=== PATIENT | female | born 1985 | race Two or more races ===

== ENCOUNTER 2023-03-29 22:38 | Inpatient (IN) | payer OTHER ==
[~2023-03-29] VITALS: Ht 162.6 cm; Wt 108.6 kg
[2023-03-29 23:12] LABS: COVID AG,FIA SOURCE NASAL SWAB
[2023-03-29 23:16] LABS: BASOPHILS % (AUTO) 0.6 % (0.0-2.0); EOSINOPHILS % (AUTO) 1.2 % (1.0-6.0); HEMATOCRIT 38.7 % (36-46); HEMOGLOBIN 12.8 g/dL (12.0-16.0); LYMPHOCYTES # (AUTO) 2.6 K/uL (1.0-4.8); LYMPHOCYTES % (AUTO) 20.5 % (22.0-44.0); MEAN CORPUSCULAR HEMOGLOBIN 28.8 pg (26.0-34.0); MEAN CORPUSCULAR HGB CONC 33.1 G/dL (31.0-37.0); MEAN CORPUSCULAR VOLUME 87 fL (80-100); MONOCYTES # (AUTO) 0.7 K/uL (0.1-1.0); MONOCYTES % (AUTO) 5.6 % (2.0-9.0); NEUTROPHILS # (AUTO) 9.2 K/uL (1.8-7.7); NEUTROPHILS % (AUTO) 72.1 % (40.0-70.0); PLATELET COUNT (AUTO) 244 K/uL (150-450); RED BLOOD CELL COUNT(AUTO) 4.44 MIL/uL (4.00-5.20); RED CELL DISTRIBUTION WIDTH 13.1 % (11.5-14.5); WHITE BLOOD COUNT (AUTO) 12.8 K/uL (4.5-11.0)
[2023-03-29 23:28] LABS: ANION GAP 8 mmol/L (8-16); CALCIUM, TOTAL 8.5 mg/dL (8.8-10.5); CARBON DIOXIDE 25 mmol/L (22-29); CHLORIDE 104 mmol/L (98-107); CREATININE 0.85 mg/dL (0.60-1.30); GLOMERULAR FILTR. RATE CALC > 60 mL/min (>60); GLUCOSE,RANDOM 172 mg/dL (70-110); POTASSIUM 3.6 mmol/L (3.5-5.1); SODIUM SERUM 137 mmol/L (136-145); UREA NITROGEN, BLOOD 15 mg/dL (7-18)
[2023-03-29 23:33] LABS: SARS-COV2 (COVID) ANTIGEN,FIA Negative (Negative)
[2023-03-29 23:34] LABS: ALANINE AMINOTRANSFERASE 15 U/L (12-78); ALBUMIN 3.4 g/dL (3.4-5.0); ALKALINE PHOSPHATASE 91 U/L (46-116); ASPARTATE AMINOTRANSFERASE 20 U/L (15-37); BILIRUBIN,TOTAL 0.2 mg/dL (0.1-1.0); TOTAL PROTEIN, SERUM 6.8 g/dL (6.4-8.2)
[2023-03-29 23:35] LABS: ACETAMINOPHEN < 2 mcg/mL (10-30)
[2023-03-29] MEDS ORDERED: 0.9% SODIUM CHLORIDE 10 ML SYRINGE IVP PRN (23:45)
[2023-03-29] MEDS ORDERED: DEXTROSE 50%-WATER 25 GM/50 ML SYRINGE IVP PRN (23:45)
[2023-03-29] MEDS ORDERED: CefTRIAXone 1 GM/DEXTROSE 50 ML IV ONE (23:45)
[2023-03-29] MEDS ORDERED: INSULIN LISPRO 100 UNITS/ML SQ PRN (23:45)
[2023-03-29] MEDS ORDERED: SODIUM CHLORIDE 0.9% 2,950 ML IV ONE (23:45)
[2023-03-29] MEDS ORDERED: ACETAMINOPHEN 325 MG TABLET PO PRN (23:45)
[2023-03-29 23:46] LABS: APPEARANCE,URINE HAZY (CLEAR); BILIRUBIN,URINE NEGATIVE (NEGATIVE); COLOR,URINE YELLOW (YELLOW); GLUCOSE, URINE (UA) NEGATIVE (NEGATIVE); KETONES,URINE NEGATIVE (NEGATIVE); LEUKOCYTE ESTERASE ,URINE LARGE (NEGATIVE); NITRATE,URINE NEGATIVE (NEGATIVE); OCCULT BLOOD,URINE NEGATIVE (NEGATIVE); PH,URINE 5.5 (5.0-8.0); PH,URINE DRUG SCREEN 5.5 (5.0-8.0); PROTEIN,URINE 100-200,SEE CONFIRM mg/dL (NEGATIVE); SPECIFIC GRAVITIY, URINE 1.037 (1.003-1.030); UROBILINOGEN,URINE <=1.0 mg/dL (<=1.0)
[2023-03-29 23:48] LABS: ALCOHOL, BLOOD (SERUM) < 3 mg/dL (0-10)
[2023-03-29 23:51] LABS: SALICYLATE 2.8 mg/dL (2.8-20.0)
[2023-03-29 23:53] LABS: ALCOHOL, URINE DRUG SCREEN NEGATIVE (NEGATIVE); AMPHET/METH SCREEN,URINE NEGATIVE (NEGATIVE); BARBITURATE SCREEN, URINE NEGATIVE (NEGATIVE); BENZODIAZEPINES SCREEN,URINE NEGATIVE (NEGATIVE); CANNABINOID SCREEN,URINE POSITIVE (NEGATIVE); COCAINE SCREEN,URINE NEGATIVE (NEGATIVE); METHADONE SCREEN, URINE NEGATIVE (NEGATIVE); OPIATE SCREEN,URINE NEGATIVE (NEGATIVE); PHENCYCLIDINE SCREEN,URINE NEGATIVE (NEGATIVE)
[2023-03-30 00:03] LABS: ABG A-A DIFF O2 19.7 mmHg (10-20.0); ABG BASE EXCESS -2.7 mmol/L (-2.0-3.0); ABG CARBOXYHEMOGLOBIN 0.8 % (0.0-1.5); ABG HCO3 22.7 mmol/L (22.0-26.0); ABG METHEMOGLOBIN 0.8 % (0.0-1.5); ABG OXYGEN CONTENT 18.2 mL/dL (15.0-23.0); ABG OXYGEN SATURATION 97.3 % (95.0-98.0); ABG OXYHEMOGLOBIN 95.7 % (94.0-100.0); ABG PCO2 36 mmHg (35-45); ABG PH 7.404 (7.350-7.450); ABG TOTAL HEMOGLOBIN 13.5 G/dL (12.0-18.0); ALLEN TEST, BLOOD GAS Positive; O2 DEVICE,BLOOD GAS ROOM AIR (ROOM AIR); PO2, ARTERIAL BG 86.8 mmHg (92.0-100.0); SITE, BLOOD GAS LFT RADIAL; SOURCE, BLOOD GAS ARTERIAL; TEMPERATURE, FAHRENHEIT, BG 98.6 FAHREN (96.0-98.6)
[2023-03-30 00:06] LABS: BACTERIA,URINE Moderate /HPF (None Seen); RBC,URINE None Seen /HPF (0-2); SQUAMOUS EPITHELIAL CELL,UR Many /LPF (None Seen); SULFOSALICYLIC ACID,URINE 1+ (Negative)
[2023-03-30 00:14] LABS: LACTIC ACID 1.1 mmol/L (0.4-2.0)
[2023-03-30 00:24] LABS: HCG,QUANTITATIVE < 1 mIU/mL (0-6); LACTATE DEHYDROGENASE 194 U/L (81-234)
[2023-03-30] MEDS ORDERED: SODIUM CHLORIDE 0.9% 500 ML IV ONE (02:45)
[2023-03-30 07:06] LABS: EOSINOPHILS % (AUTO) 1.1 % (1.0-6.0); HEMATOCRIT 34.5 % (36-46); HEMOGLOBIN 11.6 g/dL (12.0-16.0); LYMPHOCYTES # (AUTO) 2.7 K/uL (1.0-4.8); LYMPHOCYTES % (AUTO) 32.9 % (22.0-44.0); MEAN CORPUSCULAR HEMOGLOBIN 29.6 pg (26.0-34.0); MEAN CORPUSCULAR HGB CONC 33.8 G/dL (31.0-37.0); MEAN CORPUSCULAR VOLUME 88 fL (80-100); MONOCYTES # (AUTO) 0.6 K/uL (0.1-1.0); MONOCYTES % (AUTO) 7.1 % (2.0-9.0); NEUTROPHILS # (AUTO) 4.7 K/uL (1.8-7.7); NEUTROPHILS % (AUTO) 57.9 % (40.0-70.0); PLATELET COUNT (AUTO) 224 K/uL (150-450); RED BLOOD CELL COUNT(AUTO) 3.94 MIL/uL (4.00-5.20); RED CELL DISTRIBUTION WIDTH 13.2 % (11.5-14.5); WHITE BLOOD COUNT (AUTO) 8.1 K/uL (4.5-11.0)
[2023-03-30 07:19] LABS: ANION GAP 9 mmol/L (8-16); CARBON DIOXIDE 22 mmol/L (22-29); CHLORIDE 107 mmol/L (98-107); CREATININE 0.81 mg/dL (0.60-1.30); GLOMERULAR FILTR. RATE CALC > 60 mL/min (>60); GLUCOSE,RANDOM 96 mg/dL (70-110); POTASSIUM 3.9 mmol/L (3.5-5.1); SODIUM SERUM 138 mmol/L (136-145); UREA NITROGEN, BLOOD 9 mg/dL (7-18)
[2023-03-30] MEDS: HEPARIN SODIUM,PORCINE 5,000 UNITS/ML VIAL SQ SCH ×2 (19:00→23:09)
[2023-03-30 21:34] VITALS: BP 100/51; PULSE 69; RESP 18; TEMP 97.9
[2023-03-30] MEDS ORDERED: SODIUM CHLORIDE 0.9% 1,000 ML ONE (22:45)
[2023-03-30] MEDS: CHLORHEXIDINE GLUCONATE 2% TOWELETTE [2'S/6'S] TP SCH (22:47)
[2023-03-30] MEDS: CefTRIAXone 1 GM/DEXTROSE 50 ML IV SCH (22:47)
[2023-03-31 00:05] VITALS: BP 102/57; PULSE 66; RESP 18; TEMP 98.2
[2023-03-31 04:16] VITALS: BP 96/58; PULSE 62; RESP 18; TEMP 97.8
[2023-03-31] MEDS: HEPARIN SODIUM,PORCINE 5,000 UNITS/ML VIAL SQ SCH ×3 (08:00→23:47)
[2023-03-31 08:28] VITALS: BP 103/59; PULSE 69; RESP 18; TEMP 98
[2023-03-31] MEDS: HYDROCODONE/ACETAMINOPHEN 5-325 MG TABLET PO PRN ×3 (09:35→18:18)
[2023-03-31 11:31] LABS: GLUCOMETER DEV NAME(LOC) 5N.2C; GLUCOSE,POINT OF CARE 99 MG/DL (70-110)
[2023-03-31 19:56] VITALS: BP 93/48; PULSE 71; RESP 18; TEMP 98.7
[2023-03-31] MEDS ORDERED: SODIUM CHLORIDE 0.9% 500 ML IV ONE (20:30)
[2023-03-31] MEDS ORDERED: SODIUM CHLORIDE 0.9% 1,000 ML IV ONE (21:30)
[2023-03-31] MEDS: CefTRIAXone 1 GM/DEXTROSE 50 ML IV SCH (23:41)
[2023-03-31] MEDS: CHLORHEXIDINE GLUCONATE 2% TOWELETTE [2'S/6'S] TP SCH (23:58)
[2023-04-01 00:03] VITALS: BP 105/68; PULSE 67; RESP 18; TEMP 98.3
[2023-04-01 04:15] VITALS: BP 101/59; PULSE 72; RESP 18; TEMP 98.2
[2023-04-01 07:35] VITALS: BP 111/73; PULSE 74; RESP 18; TEMP 98.1
[2023-04-01] MEDS: HEPARIN SODIUM,PORCINE 5,000 UNITS/ML VIAL SQ SCH (09:10)
[2023-04-01 11:20] VITALS: BP 121/86; PULSE 68; RESP 18; TEMP 98.2
== END 2023-04-01 14:50 | disposition home or self-care (01) | DRG 817 ==
LOC: EMS 22:39 → ICU 03-30 02:11 → ICUN 03-30 02:40 → 5N 03-30 20:28
PROVIDERS: ADMIT Internal Medicine; ATTEND Internal Medicine
DX: T43.212A Poisoning by selective serotonin and norepinephrine reuptake inhibitors, intentional self-harm, initial encounter (principal); A41.9 Sepsis, unspecified organism; G92.8 Other toxic encephalopathy; N39.0 Urinary tract infection, site not specified; R94.31 Abnormal electrocardiogram [ECG] [EKG]; Z20.822 Contact with and (suspected) exposure to COVID-19; F20.9 Schizophrenia, unspecified; F31.9 Bipolar disorder, unspecified; Y93.89 Activity, other specified; Y92.89 Other specified places as the place of occurrence of the external cause; Y99.8 Other external cause status; F99 Mental disorder, not otherwise specified
CPT/HCPCS: 36600; 70450; 71045; 80048; 80053; 80307; 81001; 81002; 82140; 82805; 82962; 83605; 83615; 83735; 84145; 84702; 84703; 85025; 85730; 87040; 87086; 87186; 93005; 99285; G0480; G0481; J0696; J1644; J7030; J7040; 36415-L1; 36415-TC